=== PATIENT | male | born 1990 | race African-American/Black ===

== ENCOUNTER 2023-11-03 15:24 | Emergency (ER) | payer OTHER ==
[~2023-11-03] VITALS: Ht 175.3 cm; Wt 74.2 kg
[2023-11-03 16:08] VITALS: BP 146/78; PULSE 85; RESP 18; TEMP 99.1; O2SAT 99
[2023-11-03 16:08] LABS: Basophils # (auto) 0 10 ^3/uL (0-0.2); Eosinophils # (auto) 0 10 ^3/uL (0-0.8); Neutrophils # (auto) 9.9 10 ^3/uL (1.6-8.6); Neutrophils % (auto) 83.9 % (37.0-80.0)
[2023-11-03 16:10] LABS: Basophils % (auto) 0.2 % (0.0-2.0); Chloride 102 mmol/L (98-107); Eosinophils % (auto) 0.4 % (0.0-7.0); Hematocrit 45.6 % (41.0-53.0); Lymphocytes % (auto) 8.6 % (10.0-50.0); Mean Corpuscular Hemoglobin 27.2 pg (28.0-32.0); Mean Corpuscular Hgb Conc. 32.8 g/dL (32.0-36.0); Monocytes # (auto) 0.8 10 ^3/uL (0-1.3); Monocytes % (auto) 6.9 % (0.0-12.0); Potassium 4.1 mmol/L (3.5-5.1); Sodium 138 mmol/L (136-145); White Blood Cell 11.7 10^3/uL (4.4-10.8)
[2023-11-03 16:11] LABS: Anion Gap 8 (5-15); Calcium 9.9 mg/dL (8.5-10.1); Carbon Dioxide 28 mmol/L (20-30)
[2023-11-03 16:16] LABS: BUN/Creatinine Ratio 10.3 (10.0-20.0); Blood Urea Nitrogen 12 mg/dL (9-23); Glucose 88 mg/dL (74-106)
[2023-11-03] MEDS ORDERED: methylPREDNISolone SOD SUCC 125 MG/2 ML VL IM ONE (16:30)
[2023-11-03] MEDS ORDERED: cefTRIAXone W LIDOCAINE 1 GM IM IM ONE (16:30)
== END 2023-11-03 16:56 | disposition left against medical advice (07) ==
LOC: ER 15:24 → EEVIPCON 15:24 → ER 16:56
DX: J06.9 Acute upper respiratory infection, unspecified (principal); R94.31 Abnormal electrocardiogram [ECG] [EKG]; Z91.02 Food additives allergy status
CPT/HCPCS: 36415; 80048; 84484; 85025; 93005; 96372; 99284; J0696; J2930